=== PATIENT | female | born 2000 | race Caucasian/White ===

== ENCOUNTER 2020-10-17 20:23 | Emergency (ER) | payer BC ==
[~2020-10-17] VITALS: Ht 167.7 cm; Wt 63.5 kg
[2020-10-17] MEDS ORDERED: DOXYCYCLINE 100 MG (VIBRAMYCIN) TABLET PO SCH (20:45)
[2020-10-17] MEDS ORDERED: DOXY100T2 PO (20:46)
--- NOTE | 2020-10-17 20:47 | ED Integumentary General ---
General Chief Complaint: Skin/Wound Problems Stated Complaint: SORE/BITE - BUTTOCKS Source: patient Exam Limitations: no limitations History of Present Illness Date Seen by Provider: Oct 17, 2020 Time Seen by Provider: 20:42 Initial Comments To ER with a pustule to the left buttock that began yesterday. She popped it and got a little pus out. She today had increasing pain and redness around it. No fevers no vomiting. She did take a Tylenol. Timing/Duration: constant Severity: moderate Associated Symptoms: denies symptoms Allergies and Home Medications Allergies Coded Allergies: No Known Drug Allergies (Unverified , 10/17/20) Patient Home Medication List Home Medication List Reviewed: Yes Review of Systems Review of Systems Constitutional: see HPI EENTM: see HPI Respiratory: no symptoms reported Cardiovascular: no symptoms reported Genitourinary: no symptoms reported Musculoskeletal: no symptoms reported Skin: see HPI Psychiatric/Neurological: No Symptoms Reported Endocrine: No Symptoms Reported Hematologic/Lymphatic: No Symptoms Reported Past Qplhqeu-[id number]-Mcbraj Hx Patient Social History Recent Foreign Travel: No Contact w/Someone Who Travel: No Physical Exam Vital Signs Capillary Refill : General Appearance: WD/WN, no apparent distress, other (no tachycardia, no hypotension, no fever. The erythematous area of left buttock ecaluated with Kathy machado at bedside. 4cm circular area of very slight erythema. Within the center is a 1cm area of induration. no fluctuance. ) Respiratory: no respiratory distress, no accessory muscle use Neurologic/Psychiatric: alert, normal mood/affect, oriented x 3 Skin: normal color, warm/dry Skin Problem Location: other (left buttock) Skin Problem Character: other Progress/Results/Core Measures Results/Orders My Orders Orders - FAMILIA MCMILLAN APRN Doxycycline Hyclate Tablet (Vibramycin T (10/17/20 20:45) Departure Communication (Admissions) at this time there is no indication for labs. Normal vitals and very minimal erythema surrounding a pustule on the buttock. Offered her injection of antibiotics to help give her peace of mind as she is quite worried about this but she states she is scared of needles and would rather do pills. Impression Primary Impression: Soft tissue infection Disposition: HOME, SELF-CARE Condition: Stable Departure-Patient Inst. Decision time for Depature: 20:44 Referrals: NO,LOCAL PHYSICIAN (PCP/Family) Primary Care Physician Patient Instructions: Wound Infection Add. Discharge Instructions: 1. Warm compresses to the area. Antibiotics as directed. Tylenol and motrin for pain. All discharge instructions reviewed with patient and/or family. Voiced understanding. Scripts Doxycycline Hyclate (Doxycycline Hyclate) 100 Mg Tablet 100 MG PO BID, #14 TAB 0 Refills Prov: FAMILIA MCMILLAN APRN 10/17/20 FAMILIA MCMILLAN APRN Oct 17, 2020 20:47
== END 2020-10-17 20:55 | disposition home or self-care (01) ==
LOC: ER 20:28
DX: L08.9 Local infection of the skin and subcutaneous tissue, unspecified (principal)
CPT/HCPCS: 99283